=== PATIENT | female | born 1955 | race Caucasian/White ===

== ENCOUNTER → 2018-06-19 15:37 | Outpatient (CLI) | payer OTHER, SELFPAY ==
[2018-06-19 16:20] LABS: Influenza A and B by PCR Rapid Negative (Negative)
== END ==
PROVIDERS: Family Provider Family Medicine; PCP Family Medicine; Visit Provider Physician Assistant
DX: R68.89 Other general symptoms and signs (principal)
CPT/HCPCS: 87400

== ENCOUNTER → 2018-08-07 15:19 | Outpatient (CLI) | payer OTHER, SELFPAY ==
[2018-08-07 19:03] LABS: BUN Creatinine Ratio 28.6 (6-22); Blood Urea Nitrogen 20 mg/dL (7-17); Calcium 10.4 mg/dL (8.4-10.2); Carbon Dioxide 29 mmol/L (22-32); Chloride 100 mmol/L (98-107); Cholesterol 206 mg/dL (140-199); Estimated Glomerular Filt Rate > 60.0 mL/min (>60); Glucose 109 mg/dL (80-110); HDL Cholesterol 52 mg/dL (40-60); HEMOLYSIS < 15 (0-50); LDL Cholesterol Calculated 131 mg/dL (<100); Potassium 4.7 mmol/L (3.4-5.1); Sodium 140 mmol/L (137-145); Triglycerides 116 mg/dL (35-150)
[2018-08-07 19:06] LABS: Creatinine Urine Random 57.5 mg/dL
[2018-08-07 19:12] LABS: Microalbumi Creatinin Ratio Ur 10.4 ug/mg CR (<30); Microalbumin Urine Random < 0.6 mg/dL (0-1.6)
== END ==
PROVIDERS: Family Provider Family Medicine; PCP Family Medicine; Visit Provider Family Medicine
DX: I10 Essential (primary) hypertension (principal)
CPT/HCPCS: 36415; 80048; 80061; 82043; 82570

== ENCOUNTER → 2019-06-21 10:08 | Outpatient (CLI) | payer OTHER, SELFPAY ==
[2019-06-23 03:54] LABS: COVID19 Sendout Not Detected (Not Detected)
== END ==
PROVIDERS: PCP Family Medicine; Visit Provider Family Medicine
DX: R68.89 Other general symptoms and signs (principal)
CPT/HCPCS: 87635

== ENCOUNTER 2022-10-07 07:18 | Emergency (ER) | payer MEDICARE, OTHER, SELFPAY ==
--- NOTE | 2022-10-07 07:28 | DI.RAD.S_ITS ---
PROCEDURE: XR KNEE LT 3V INDICATIONS: fall, pain in knee TECHNIQUE: 3 views of the knee were acquired. COMPARISON: None. FINDINGS: Bones: No fractures or dislocations. No suspicious bony lesions. Soft tissues: No joint effusion. No suspicious soft tissue calcifications. IMPRESSION: No evidence acute bony abnormality. Dictated by: Herber Mejía M.D. on 10/07/2022 at 8:15 Approved by: Herber Mejía M.D. on 10/07/2022 at 8:15
[2022-10-07 07:29] VITALS: BP 194/109; PULSE 92; RESP 18; TEMP 36.7; O2SAT 99; BMI 40.2
--- NOTE | 2022-10-07 07:47 | ED_ITS ---
HPI - Extremity Injury (Lower) General Chief Complaint: Extremity Injury, Lower Stated Complaint: Lt knee pain from fall Time Seen by Provider: 10/07/22 07:22 Source: patient Mode of arrival: Family Vehicle History of Present Illness HPI Narrative: Patient is a 67-year-old female history of hypertension presenting today with left knee pain. She reports that yesterday she slipped off curb she felt like her knee went sideways. It hurts to bear weight she is limited range of motion. No other injury. She is been icing and taking ibuprofen. No numbness or tingling. Related Data Home Medications Medication Instructions Recorded Confirmed MULTIVITAMIN (Multivitamin 1 cap PO EVERY DAY ##0 06/05/10 12/15/20 -) Previous Rx's Medication Instructions Recorded lisinopril 20 mg tablet 20 mg PO DAILY #30 tabs 12/15/20 hydrocodone 5 mg-acetaminophen 325 1 tab PO Q6H PRN pain #10 tabs 10/07/22 mg tablet Allergies Allergy/AdvReac Type Severity Reaction Status Date / Time amoxicillin [AMOXICILLIN] Allergy Unknown Verified 10/07/22 07:32 Penicillins [PENICILLINS] Allergy Unknown Verified 10/07/22 07:32 Review of Systems Review of Systems ROS Unobtainable: All systems reviewed & are unremarkable except as noted in HPI and below Patient History Medical History CVA (cerebral vascular accident) Depression (11/23/10) 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) Essential hypertension (11/15/10) Surgical History History of cataract removal with insertion of prosthetic lens History of tonsillectomy Status post tubal ligation Family History Father Coronary artery disease Prostate cancer FH: mental illness Grandmother Type II diabetes mellitus Sister Diabetes mellitus Alcoholism Social History marital status: lives independently: Yes caregiver/support person: No housing: house education level: college Smoking Status: Never smoker second hand exposure: No alcohol intake: never substance use type: does not use Smoking Status: Never smoker alcohol intake frequency: 0-2 drinks per day Substance Use Type: does not use Exam Initial Vital Signs Initial Vital Signs: Vital Signs Temperature 98.1 F 10/07/22 07:29 Pulse Rate 92 H 10/07/22 07:29 Respiratory Rate 18 10/07/22 07:29 Blood Pressure 194/109 H 10/07/22 07:29 Pulse Oximetry 99 10/07/22 07:29 Oxygen Delivery Method Room Air 10/07/22 07:29 GENERAL: Alert pleasant 67-year-old female CARDIOVASCULAR: peripheral pulses in tact, cap refill <2 sec RESPIRATORY: No respiratory distress, speaks in full sentences without difficulty EXTREMITIES: Normal range of motion, no clubbing or edema. Neurovascularly intact Left knee mild effusion able to flex and extend distal pedal pulse intact. Tender medially stable anterior and posteriorly. NEUROLOGICAL: Cranial nerves II through XII grossly intact. Normal gait and speech. SKIN: Warm, dry, no petechiae, no rashes or lesions. Course Orders Ordered: ED Orders 10/07/22 07:28 XR knee LT 3V Stat Vital Signs Vital signs: Vital Signs - 8 hr 10/07/22 07:29 Temperature 98.1 F Pulse Rate 92 H Respiratory Rate 18 Blood Pressure 194/109 H Pulse Oximetry 99 Oxygen Delivery Method Room Air MDM - Extremity Injury (Lower) Imaging Data Extremity x-ray #1: Radiologist's Impression: PROCEDURE:? XR KNEE LT 3V ? INDICATIONS:? fall, pain in knee ? TECHNIQUE:? 3 views of the knee were acquired.? ? COMPARISON:? None. ? FINDINGS:? ? Bones:? No fractures or dislocations.? No suspicious bony lesions.? ? Soft tissues:? No joint effusion.? No suspicious soft tissue calcifications.? ? ? IMPRESSION:? No evidence acute bony abnormality. ? ? ? Dictated by: Herber Mejía M.D. on 10/07/2022 at 8:15 ? [facility] Narrative Medical decision making narrative: Patient is 67-year-old female presents today after mechanical fall yesterday. Knee is stable but tender medially. X-ray is negative fracture. Supportive care only with probable outpatient MRI. No need for any further imaging emergently. Discharge Plan Departure Patient Disposition: Home Clinical Impression: Left knee sprain Instructions: DI for Knee Sprain Activity Restrictions/Additional Instructions: *You have been diagnosed with left knee sprain *What to do: At this time elevate ice wear knee brace as needed. He is crutches. He may require outpatient MRI in a week or 2 if still having pain. *Continue to take medications as directed Motrin 600 mg every 6 hours if needed for [id number] pain [place] 1 tablet every 6 hours if needed for severe pain--> [facility] *Follow up with your primary care provider in 2-3 days or call [phone] *Return to ER if you should have increased pain swelling inability to walk or any new, worsening or concerning symptoms CONTROLLED SUBSTANCE DISCHARGE (Narcotoic/benzodiazepine/Flexeril/Phenergan) 1. You have been prescribed narcotic medications, it does have acetaminophen/Tylenol/paracetamol in it, DO NOT TAKE MORE THAN 4,00mg in 24 hours of Tylenol. TRAMADOL DOES NOT CONTAIN TYLENOL 2. Please understand that we cannot provide further refills of narcotics, benzodiazepines or controlled substances through the ED and her pain management will need to be through your provider. 3. While on these medications you cannot drive or operate heavy machinery. 4. You cannot sign legal documents or perform any duties such as this. 5. As long as you're taking opiate pain medications he should also be taking a stool softener such as Colace, Dulcolax, MiraLAX or prune juice, to help avoid constipation. Prescriptions: New hydrocodone-acetaminophen 5-325 mg tablet 1 tab PO Q6H PRN (Reason: pain) Qty: 10 0RF No Action lisinopril 20 mg tablet 20 mg PO DAILY Qty: 30 2RF MULTIVITAMIN (Multivitamin -) 1 cap PO EVERY DAY Qty: 0 Referrals: Chloe Guzman MD [Primary Care Provider] - Stand Alone Forms: Patient Portal/API
[2022-10-07 08:40] VITALS: BP 183/104; PULSE 82; RESP 16; O2SAT 95
== END 2022-10-07 08:47 | disposition home or self-care (01) ==
PROVIDERS: Emergency Provider Emergency Medicine; PCP Family Medicine
DX: S83.92XA Sprain of unspecified site of left knee, initial encounter (principal); W01.0XXA Fall on same level from slipping, tripping and stumbling without subsequent striking against object, initial encounter
CPT/HCPCS: 73562; 99283

== ENCOUNTER → 2022-10-24 15:38 | Outpatient (CLI) | payer MEDICARE, OTHER, SELFPAY ==
--- NOTE | 2022-10-24 | DI.MRI.S_ITS ---
PROCEDURE: MR KNEE LT WO CON INDICATIONS: LCL tear TECHNIQUE: Noncontrast sagittal PD fast spin echo and T2 fast spin echo with fat saturation, sagittal 3-D FLASH with fat saturation; coronal T1 spin echo and PD fast spin echo with fat saturation, and axial PD fast spin echo with fat saturation through the knee. COMPARISON: [facility], CR, XR KNEE LT 3V, 10/07/2022, 7:51. FINDINGS: Image quality: Excellent. Anterior Cruciate Ligament: High-grade versus complete tearing of the midportion of the anterior cruciate ligament. Posterior Cruciate Ligament: Intact. Medial Collateral Ligament: Intact. Lateral Collateral Ligament: Intact. Medial Meniscus: Complex tearing of the medial meniscus. A peripheral vertical longitudinal component is seen throughout the posterior horn involving the outer third of the meniscal tissue. There is a horizontal oblique component at the meniscal body extending to the inner third of the tibial articular surface. Lateral Meniscus: Mild free edge fibrillation at the body of the lateral meniscus. Medial and Lateral Tendons: The semimembranosus tendon insertions and meniscocapsular junction appear intact. Visualized portions of the pes anserinus tendons appear normal. No abnormal bursal fluid. The long and short heads of the biceps femoris tendon appear intact. The popliteus tendon appears intact. No signs of posterolateral corner injury. Iliotibial band appears normal. Anterior Structures: The quadriceps and patellar tendons appear intact. No patellar subluxation. No femoral trochlear dysplasia or ventral trochlear prominence. No edema in the infrapatellar fat pad. Bones: Small impaction fracture at the far posterior non weight-bearing portion of the lateral tibial plateau with surrounding edema. Mild osseous edema is seen at the anterior weight-bearing portion of the lateral femoral condyle. There is also mild edema at the anterior and posterior portions of the medial tibial plateau. Overall, findings are most compatible with a pivot-shift injury mechanism. Medial Femorotibial Cartilage: High-grade cartilage thinning and partial thickness cartilage loss is seen throughout the weight-bearing portion of the medial femorotibial compartment extending into the far posterior portion of the medial femoral condyle. Lateral Femorotibial Cartilage: High-grade partial-thickness cartilage irregularity at the far posterior portion of the lateral femoral condyle superimposed on background moderate and high-grade cartilage thinning and irregularity. Patellofemoral Cartilage: Mild generalized partial-thickness cartilage thinning. Soft Tissues: There is a moderate joint effusion. Hypointense material in the suprapatellar recess may represent a thickened incomplete suprapatellar plica. Filling defect in the lateral portion of the suprapatellar recess is favored to be focal synovial hypertrophy rather than a cartilaginous loose body. Small medial popliteal cyst. The musculature surrounding the knee is normal in bulk. IMPRESSION: 1. Minimally depressed impaction fracture at the far posterior non weight-bearing portion of the lateral tibial plateau with surrounding osseous edema. Mild osseous contusions are also seen at the anterior weight-bearing portion of the lateral femoral condyle and the anterior and posterior portions of the medial tibial plateau. The pattern is suspicious for a recent pivot-shift injury. 2. Likely complete tearing of the midportion of the anterior cruciate ligament. 3. Complex tearing of the medial meniscus with a peripheral vertical longitudinal component at the posterior horn involving the outer third of meniscal tissue as well as a horizontal oblique component at the meniscal body extending to the inner third of the tibial articular surface. 4. Mild free edge fibrillation at the body of the lateral meniscus without a discrete tear. 5. 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 6. Moderate joint effusion. Small medial popliteal cyst. Approved by: Red Wilson M.D. on 10/25/2022 at 9:45
== END ==
PROVIDERS: PCP Family Medicine; Referring Provider Physician Assistant; Visit Provider Physician Assistant
DX: S83.422A Sprain of lateral collateral ligament of left knee, initial encounter (principal); S83.232A Complex tear of medial meniscus, current injury, left knee, initial encounter; S83.512A Sprain of anterior cruciate ligament of left knee, initial encounter; S82.145A Nondisplaced bicondylar fracture of left tibia, initial encounter for closed fracture; X58.XXXA Exposure to other specified factors, initial encounter
CPT/HCPCS: 73721

== ENCOUNTER → 2023-12-02 08:53 | Outpatient (CLI) | payer MEDICARE, OTHER, SELFPAY ==
[2023-12-02 10:09] LABS: Creatinine Urine Random 193.85 mg/dL
[2023-12-02 10:15] LABS: Microalbumin Urine Random 0.9 mg/dL (0-1.6)
[2023-12-02 10:48] LABS: Alanine Aminotransferase 30 IU/L (<35); Albumin 4.4 g/dL (3.5-5.0); Albumin Globulin Ratio 1.4 (1.0-2.8); Alkaline Phosphatase 109 U/L (38-126); Aspartate Aminotransferase 27 IU/L (14-36); BUN Creatinine Ratio 24.4 (6-22); Bilirubin Total 0.7 mg/dL (0.2-1.3); Blood Urea Nitrogen 20 mg/dL (7-17); Calcium 9.8 mg/dL (8.4-10.2); Carbon Dioxide 26 mmol/L (22-32); Chloride 101 mmol/L (98-107); Cholesterol 167 mg/dL (140-199); Estimated Glomerular Filt Rate > 60 mL/min (>60); Globulin 3.1 g/dL (1.7-4.1); Glucose 147 mg/dL (80-110); HDL Cholesterol 54 mg/dL (40-60); HEMOLYSIS < 15 (0-50); LDL Cholesterol Calculated 86 mg/dL (<100); Potassium 4.5 mmol/L (3.4-5.1); Sodium 135 mmol/L (137-145); Total Protein 7.5 g/dL (6.3-8.2); Triglycerides 136 mg/dL (35-150)
[2023-12-02 11:34] LABS: Hemoglobin A1C% w Est Avg Glu 6.8 % (4.0-6.0)
== END ==
PROVIDERS: PCP Family Medicine; Referring Provider Family Medicine; Visit Provider Family Medicine
DX: I10 Essential (primary) hypertension (principal); E66.9 Obesity, unspecified
CPT/HCPCS: 36415; 80053; 80061; 82043; 82570; 83036

== ENCOUNTER → 2024-09-15 11:40 | Outpatient (CLI) | payer MEDICARE, OTHER, SELFPAY ==
[2024-09-15 13:09] LABS: Hemoglobin A1C% w Est Avg Glu 6.8 % (4.0-6.0)
== END ==
PROVIDERS: PCP Family Medicine; Referring Provider Family Medicine; Visit Provider Family Medicine
DX: E11.9 Type 2 diabetes mellitus without complications (principal)
CPT/HCPCS: 36415; 83036

== ENCOUNTER → 2025-01-03 12:04 | Outpatient (CLI) | payer MEDICARE, OTHER, SELFPAY ==
[2025-01-03 14:09] LABS: Alanine Aminotransferase 29 IU/L (<35); Albumin 4.7 g/dL (3.5-5.0); Albumin Globulin Ratio 1.6 (1.0-2.8); Alkaline Phosphatase 77 U/L (38-126); Blood Urea Nitrogen 22 mg/dL (7-17); Calcium 9.9 mg/dL (8.4-10.2); Carbon Dioxide 24 mmol/L (22-32); Chloride 105 mmol/L (98-107); Cholesterol 204 mg/dL (140-199); Estimated Glomerular Filt Rate > 60 mL/min (>60); Globulin 3.0 g/dL (1.7-4.1); Glucose 111 mg/dL (70-99); HDL Cholesterol 53 mg/dL (40-60); HEMOLYSIS < 15 (0-50); Hemoglobin A1C% w Est Avg Glu 6.4 % (4.0-6.0); Potassium 4.5 mmol/L (3.4-5.1); Sodium 138 mmol/L (137-145); Total Protein 7.7 g/dL (6.3-8.2); Triglycerides 214 mg/dL (35-150)
[2025-01-03 15:52] LABS: Microalbumi Creatinin Ratio Ur 7.0 ug/mg CR (<30)
== END ==
PROVIDERS: PCP Family Medicine; Referring Provider Family Medicine; Visit Provider Family Medicine
DX: E11.9 Type 2 diabetes mellitus without complications (principal)
CPT/HCPCS: 36415; 80053; 80061; 82043; 82570; 83036